=== PATIENT | female | born 1940 | race Caucasian/White ===

== ENCOUNTER 2017-05-23 15:33 | Emergency (ER) | payer OTHER ==
[~2017-05-23] VITALS: Ht 160 cm; Wt 75.3 kg
[~2017-05-23 15:33] MED LIST: ALPRAZOLAM0.5 MG PO; BENICAR HCT 201 EACH PO; CIPROFLOXACIN500 M1 PO; NEXIUM40 MG PO; PRAVASTATIN SOD20 MG PO; SPIRONO/HCTZ; SPIRONOLACT/HC1 EACH PO; XANAX0.5 MG PO; XARELTO20 MG PO
[2017-05-23 17:20] LABS: HEMATOCRIT 44.2 % (36.0-46.0); HEMOGLOBIN 14.8 G/DL (11.9-15.5); MCH 30.3 PG (29.0-34.0); MCHC 33.5 G/DL (30.0-36.0); MCV 90.6 FL (83-99); PLATELET COUNT 232 K/uL (156-360); RBC DIS.WIDTH-CV 13.7 % (11.8-14.6); RBC DIS.WIDTH-SD 45.3 % (39-53); RED BLOOD COUNT 4.88 M/uL (3.80-5.20); WHITE BLOOD COUNT 10.7 K/uL (4.1-10.2)
[2017-05-23 17:30] LABS: CHLORIDE 107 mEq/L (99-109); POTASSIUM 4.3 mEq/L (3.7-5.4); SODIUM 145 mEq/L (136-147)
[2017-05-23 17:32] LABS: GLUCOSE 121 mg/dL (70-99)
[2017-05-23 17:36] LABS: CREATININE 0.8 mg/dL (0.6-1.3); GFR ESTIMATE (CALCULATED) > 59 mL/min/; UREA NITROGEN (BUN) 18 mg/dL (9-23)
[2017-05-23 17:43] LABS: TROP-I INTERPRETATION NEGATIVE; TROPONIN-I < 0.01 ng/mL (0.0-0.30)
[2017-05-23] MEDS ORDERED: NORCO 5/3251 TABLET PO (19:50)
[2017-05-23] MEDS ORDERED: VOLTAREN 1% GE100 GM TP (19:50)
[2017-05-23 20:18] VITALS: BP 109/71
== END 2017-05-23 20:24 | disposition home or self-care (01) ==
LOC: EME 15:33
DX: M54.2 Cervicalgia (principal); I10 Essential (primary) hypertension; I48.2 Chronic atrial fibrillation; R51 Headache; E78.5 Hyperlipidemia, unspecified; F41.9 Anxiety disorder, unspecified; Z79.01 Long term (current) use of anticoagulants; Z88.5 Allergy status to narcotic agent; Z88.6 Allergy status to analgesic agent; Z88.8 Allergy status to other drugs, medicaments and biological substances
CPT/HCPCS: 70450; 70498; 71046; 80048; 84484; 85027; 93005; 99281; 99285; J2060; J2405

== ENCOUNTER 2017-09-14 16:23 | Emergency (ER) | payer OTHER ==
[~2017-09-14] VITALS: Ht 160 cm; Wt 76.1 kg
[~2017-09-14 16:23] MED LIST changes: +NORCO 5/3251 TABLET PO; +VOLTAREN 1% GE100 GM TP
[2017-09-14 17:08] LABS: CHLORIDE 107 mEq/L (99-109); HEMATOCRIT 41.8 % (36.0-46.0); HEMOGLOBIN 14.4 G/DL (11.9-15.5); MCH 30.4 PG (29.0-34.0); MCHC 34.4 G/DL (30.0-36.0); MCV 88.2 FL (83-99); POTASSIUM 5.1 mEq/L (3.7-5.4); RBC DIS.WIDTH-CV 14.1 % (11.8-14.6); RBC DIS.WIDTH-SD 45.9 % (39-53); RED BLOOD COUNT 4.74 M/uL (3.80-5.20); SODIUM 139 mEq/L (136-147); WHITE BLOOD COUNT 11.1 K/uL (4.1-10.2)
[2017-09-14 17:10] LABS: GLUCOSE 134 mg/dL (70-99)
[2017-09-14 17:14] LABS: CREATININE 0.9 mg/dL (0.6-1.3); GFR ESTIMATE (CALCULATED) > 59 mL/min/
[2017-09-14 17:15] LABS: UREA NITROGEN (BUN) 36 mg/dL (9-23)
[2017-09-14 17:20] LABS: TROP-I INTERPRETATION NEGATIVE; TROPONIN-I < 0.01 ng/mL (0.0-0.30)
[2017-09-14 17:37] LABS: PLATELET COUNT UNABLE TO REPORT K/uL (156-360)
[2017-09-14 19:29] LABS: TROP-I INTERPRETATION NEGATIVE; TROPONIN-I < 0.01 ng/mL (0.0-0.30)
[2017-09-14] MEDS ORDERED: LOPRESSOR25 MG PO (22:34)
[2017-09-14 22:53] VITALS: BP 100/81
[2017-09-15] MEDS ORDERED: CLONAZEPAM1 MG PO (19:41)
[2017-09-15] MEDS ORDERED: PRAVACHOL10 MG PO (19:41)
[2017-09-15] MEDS ORDERED: ESOMEPRAZOLE MA40 MG PO (19:42)
[2017-09-15] MEDS ORDERED: VITAMIN D31000 UNI2 PO (19:43)
[2017-09-15] MEDS ORDERED: METOPROLOL TART25 MG PO (19:44)
[2017-09-15] MEDS ORDERED: PREDNISONE5 MG PO (19:52)
== END 2017-09-14 22:53 | disposition home or self-care (01) ==
LOC: EME 16:23
PROVIDERS: Family Medicine
DX: I48.91 Unspecified atrial fibrillation (principal); R06.02 Shortness of breath; Z79.01 Long term (current) use of anticoagulants; I10 Essential (primary) hypertension
CPT/HCPCS: 71045; 80048; 84484; 85027; 93005; 99281; 99285

== ENCOUNTER 2017-09-15 17:01 | Observation (INO) | payer OTHER ==
[~2017-09-15] VITALS: Ht 152.4 cm; Wt 78.2 kg
[~2017-09-15 17:01] MED LIST changes: +LOPRESSOR25 MG PO
[2017-09-15 18:02] LABS: HEMATOCRIT 40.7 % (36.0-46.0); HEMOGLOBIN 13.9 G/DL (11.9-15.5); MCH 30.2 PG (29.0-34.0); MCHC 34.2 G/DL (30.0-36.0); MCV 88.5 FL (83-99); PLATELET COUNT 331 K/uL (156-360); RBC DIS.WIDTH-CV 14.3 % (11.8-14.6); RBC DIS.WIDTH-SD 45.9 % (39-53); WHITE BLOOD COUNT 11.1 K/uL (4.1-10.2)
[2017-09-15 18:11] LABS: CHLORIDE 109 mEq/L (99-109); POTASSIUM 4.7 mEq/L (3.7-5.4); SODIUM 141 mEq/L (136-147)
[2017-09-15 18:12] LABS: GLUCOSE 138 mg/dL (70-99)
[2017-09-15 18:16] LABS: CREATININE 1.2 mg/dL (0.6-1.3); GFR ESTIMATE (CALCULATED) 46 mL/min/
[2017-09-15 18:17] LABS: UREA NITROGEN (BUN) 41 mg/dL (9-23)
[2017-09-15 18:22] LABS: TROP-I INTERPRETATION NEGATIVE; TROPONIN-I 0.02 ng/mL (0.0-0.30)
[2017-09-15] MEDS ORDERED: PRAVACHOL10 MG PO (19:41)
[2017-09-15] MEDS ORDERED: CLONAZEPAM1 MG PO (19:41)
[2017-09-15] MEDS ORDERED: ESOMEPRAZOLE MA40 MG PO (19:42)
[2017-09-15] MEDS ORDERED: VITAMIN D31000 UNI2 PO (19:43)
[2017-09-15] MEDS ORDERED: METOPROLOL TART25 MG PO (19:44)
[2017-09-15] MEDS ORDERED: PREDNISONE5 MG PO (19:52)
[2017-09-15 21:25] LABS: APPEARANCE CLEAR ((CLEAR)); BILIRUBIN NEGATIVE; BLOOD NEGATIVE; COLOR YELLOW ((YELLOW)); GLUCOSE (STRIP) NEGATIVE; KETONES NEGATIVE; LEUKOCYTES MODERATE; NITRITE NEGATIVE; PROTEIN (STRIP) NEGATIVE; SPECIFIC GRAVITY 1.018 (1.000-1.030); UROBILINOGEN 0.2 MG/DL (0.2-1.0)
[2017-09-15 21:29] LABS: BACTERIA NONE SEEN /HPF; EPITHELIAL CELLS RARE /HPF; MUCUS TRACE /LPF; RED BLOOD CELLS 0-5 /HPF (0-5); UCUL ADDED? YES
[2017-09-15 22:47] VITALS: BP 173/81
[2017-09-16] VITALS: BP 138/68
[2017-09-16 04:31] VITALS: BP 111/59
[2017-09-16 05:20] LABS: TROP-I INTERPRETATION NEGATIVE; TROPONIN-I 0.02 ng/mL (0.0-0.30)
[2017-09-16 08:37] VITALS: BP 114/61
[2017-09-16 11:48] VITALS: BP 103/55
[2017-09-16] MEDS ORDERED: LOPRESSOR25 MG PO (11:54)
== END 2017-09-16 13:24 | disposition home or self-care (01) ==
LOC: EME 17:01 → EDOF 20:07 → 4SOUTH 20:07 → EDOF 20:07 → ENRESERV 20:10 → 4SOUTH 22:23
PROVIDERS: Family Medicine; Hospitalist
DX: I48.0 Paroxysmal atrial fibrillation (principal); N39.0 Urinary tract infection, site not specified; I10 Essential (primary) hypertension; E78.5 Hyperlipidemia, unspecified; M35.3 Polymyalgia rheumatica; F41.9 Anxiety disorder, unspecified; Z60.2 Problems related to living alone; Z87.891 Personal history of nicotine dependence; I73.9 Peripheral vascular disease, unspecified; R53.83 Other fatigue; Z87.440 Personal history of urinary (tract) infections; Z82.49 Family history of ischemic heart disease and other diseases of the circulatory system; Z88.6 Allergy status to analgesic agent; Z88.5 Allergy status to narcotic agent; Z88.8 Allergy status to other drugs, medicaments and biological substances; Z79.01 Long term (current) use of anticoagulants
CPT/HCPCS: 80048; 81003; 84484; 85027; 87086; 93005; 99281; 99285; G0378; J0696; J7030; J7040; J7512